=== PATIENT | male | born 1960 | race Caucasian/White ===

== ENCOUNTER 2023-02-22 10:14 | Emergency (ER) | payer OTHER ==
[~2023-02-22] VITALS: Ht 182.9 cm; Wt 90.7 kg
[~2023-02-22 10:14] MED LIST: ADULTS 50+ MUL1 EACH PO; BACLOFEN10 MG PO; BUPRENORPHINE HC8 MG SL; CELEBREX50 MG PO; CELECOXIB200 MG PO; GLUCOSAMINE CH1 EAC1 PO; LAMOTRIGINE100 MG PO; METHOCARBAMOL750 MG PO; METHYLPREDNISOLO4 M1 PO; MORPHINE SULFAT30 M1 PO; NORCO 10-325 T1 EACH PO; NORCO 5-325 TA1 EACH PO; PROZAC10 MG PO; SUBOXONE 8 MG-1 EAC1 SL; VITAMIN D5000 UNIT PO; ZOFRAN ODT8 MG PO
[2023-02-22] MEDS ORDERED: TIZANIDINE HCL2 MG PO (10:45)
[2023-02-22] MEDS ORDERED: DULOXETINE HCL20 MG PO (10:45)
[2023-02-22] MEDS ORDERED: IRBESARTAN150 MG PO (10:45)
[2023-02-22] MEDS ORDERED: PREDNISONE20 MG PO (11:14)
[2023-02-22] MEDS ORDERED: NEURONTIN400 MG PO (11:14)
[2023-02-22] MEDS ORDERED: HYDROCODON-ACE1 EA10 PO (11:14)
[2023-02-22 11:47] VITALS: BP 146/93
== END 2023-02-22 11:48 | disposition home or self-care (01) ==
LOC: ED 10:14
DX: M54.12 Radiculopathy, cervical region (principal); M48.02 Spinal stenosis, cervical region; Z79.899 Other long term (current) drug therapy
CPT/HCPCS: 96372; 99283; J1100

== ENCOUNTER 2023-08-18 20:19 | Emergency (ER) | payer OTHER ==
[~2023-08-18] VITALS: Ht 182.9 cm; Wt 90.9 kg
[~2023-08-18 20:19] MED LIST changes: +DICLOFENAC SODI75 MG PO; +DULOXETINE HCL20 MG PO; +HYDROCODON-ACE1 EA10 PO; +HYDROXYZINE PAM25 MG PO; +IRBESARTAN150 MG PO; +LASIX20 MG PO; +LIDODERM1 EACH TOP; +NEURONTIN400 MG PO; +PANTOPRAZOLE SO40 MG PO; +PREDNISONE20 MG PO; +TIZANIDINE HCL2 MG PO
--- OUTSIDE RECORDS SUMMARY | 2023-08-18 20:22 | XMS ---
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 PHONE: [phone] Susan has no Care Guidelines for this patient. EJoyce VISIT COUNT (12 MO.) [address] [place] [address] TOTAL 6 NOTE: Visits indicate total known visits. ED/UCC VISIT TRACKING (12 MO.) 08/18/2023 20:20 [facility] [place] TYPE: Emergency COMPLAINT: - LEG SWELLING 07/27/2023 03:20 [facility] [place] TYPE: Emergency COMPLAINT: - BACK PAIN DIAGNOSES: - Cervicalgia - Exposure to other specified factors, initial encounter - Other exterminator termite (current) drug therapy - Strain of muscle, fascia and tendon at neck level, initial encounter 06/01/2023 23:18 [facility] [place] TYPE: Emergency COMPLAINT: - NECK PAIN DIAGNOSES: - Cervicalgia - Other exterminator termite (current) drug therapy - Spinal stenosis, cervical region - Torticollis 03/30/2023 10:10 [facility] [place] TYPE: Emergency COMPLAINT: - NECK/BACK/FINGERS PAIN, AMS DIAGNOSES: - Altered mental status, unspecified - Hypokalemia - snf (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 of systemic steroids - Other correction (current) drug therapy - Other psychoactive substance abuse, uncomplicated 03/26/2023 13:16 [facility] [place] TYPE: Emergency COMPLAINT: - NECK PAIN DIAGNOSES: - Cervicalgia - Muscle spasm of back - Other exterminator termite (current) drug therapy - Other muscle spasm 02/22/2023 10:15 [facility] [place] TYPE: Emergency COMPLAINT: - NECK PAIN, LOWER BACK PAIN DIAGNOSES: - Low back pain, unspecified - Other exterminator termite (current) drug therapy - Radiculopathy, cervical region - Spinal stenosis, cervical region INPATIENT VISIT TRACKING (12 MO.) No inpatient visits to display in this time frame [id number]
[2023-08-18 21:06] LABS: BASOPHILS 0.3 % (0-2); EOSINOPHILS 5.3 % (0-6); HEMATOCRIT 31.9 % (35.0-50.0); HEMOGLOBIN 10.5 g/dL (12.0-18.0); LYMPHOCYTES 25.9 % (24-44); MCH 29.1 (27-36); MCV 88.3 fl (81-99); MONOCYTES 11.6 % (0-12); NEUTROPHILS 56.9 % (39-80); PLATELET COUNT 242 K/uL (140-440); RBC 3.61 M/ul (4.3-5.7); RDW 14.1 (10.5-15.0)
[2023-08-18 21:28] LABS: ALBUMIN 3.1 g/dL (3.4-5.0); ALBUMIN/GLOBULIN RATIO 0.76 (1.1-2.4); ANION GAP 10.7 (7-21); BILIRUBIN, TOTAL 0.3 ng/dL (0.2-1.0); CALCIUM 8.6 mg/dL (8.5-10.1); POTASSIUM 3.7 mmol/L (3.5-5.1); PROTEIN, TOTAL 7.2 g/dL (6.4-8.2)
[2023-08-18] MEDS ORDERED: CYCLOBENZAPRINE10 MG PO (22:18)
[2023-08-18] MEDS ORDERED: NEURONTIN300 MG PO (22:18)
[2023-08-18] MEDS ORDERED: CYCLOBENZAPRINE HCL 10 MG HOME.PACK PO ONE (22:30)
[2023-08-18 22:38] VITALS: BP 109/67
== END 2023-08-18 22:39 | disposition home or self-care (01) ==
LOC: ED 20:19
PROVIDERS: Family Medicine
DX: M54.12 Radiculopathy, cervical region (principal); R60.0 Localized edema; F11.10 Opioid abuse, uncomplicated; Z79.899 Other long term (current) drug therapy
CPT/HCPCS: 36415; 80053; 83880; 85025; 99283

== ENCOUNTER 2023-11-05 10:07 | Emergency (ER) | payer OTHER ==
[~2023-11-05] VITALS: Ht 182.9 cm; Wt 98.3 kg
[~2023-11-05 10:07] MED LIST changes: +CYCLOBENZAPRINE10 MG PO; +NEURONTIN300 MG PO
--- OUTSIDE RECORDS SUMMARY | 2023-11-05 10:08 | XMS ---
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 E.D. VISIT COUNT (12 MO.) 7 [facility] TOTAL 7 NOTE: Visits indicate total known visits. ED/UCC VISIT TRACKING (12 MO.) 11/05/2023 10:07 [facility] [place] TYPE: Emergency COMPLAINT: - NECK PAIN 08/18/2023 20:20 [facility] [place] TYPE: Emergency COMPLAINT: - LEG SWELLING DIAGNOSES: - Cervicalgia - Localized edema - Opioid abuse, uncomplicated - Other care home (current) drug therapy - Radiculopathy, cervical region 07/27/2023 03:20 [facility] [place] TYPE: Emergency COMPLAINT: - BACK PAIN DIAGNOSES: - Cervicalgia - Exposure to other specified factors, initial encounter - Other equipment operator intermodal yard (current) drug therapy - Strain of muscle, fascia and tendon at neck level, initial encounter 06/01/2023 23:18 [facility] [place] TYPE: Emergency COMPLAINT: - NECK PAIN DIAGNOSES: - Cervicalgia - Other care home (current) drug therapy - Spinal stenosis, cervical region - Torticollis 03/30/2023 10:10 [facility] [place] TYPE: Emergency COMPLAINT: - NECK/BACK/FINGERS PAIN, AMS DIAGNOSES: - Altered mental status, unspecified - Hypokalemia - intermediate accountant (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 of systemic steroids - Other care home (current) drug therapy - Other psychoactive substance abuse, uncomplicated 03/26/2023 13:16 [facility] [place] TYPE: Emergency COMPLAINT: - NECK PAIN DIAGNOSES: - Cervicalgia - Muscle spasm of back - Other equipment operator intermodal yard (current) drug therapy - Other muscle spasm 02/22/2023 10:15 [facility] [place] TYPE: Emergency COMPLAINT: - NECK PAIN, LOWER BACK PAIN DIAGNOSES: - Low back pain, unspecified - Other equipment operator intermodal yard (current) drug therapy - Radiculopathy, cervical region - Spinal stenosis, cervical region INPATIENT VISIT TRACKING (12 MO.) No inpatient visits to display in this time frame [email or web address]
[2023-11-05] MEDS ORDERED: IBUPROFEN 800 MG TAB PO ONE (10:45)
[2023-11-05 11:01] LABS: ALBUMIN 3.2 g/dL (3.4-5.0); ALBUMIN/GLOBULIN RATIO 0.74 (1.1-2.4); BILIRUBIN, TOTAL 0.3 ng/dL (0.2-1.0); BUN/CREATININE RATIO 27.47 (6.0-28.6); CALCIUM 8.8 mg/dL (8.5-10.1); CREATININE, SERUM 0.91 mg/dL (0.70-1.30); PROTEIN, TOTAL 7.5 g/dL (6.4-8.2)
[2023-11-05] MEDS ORDERED: NEURONTIN300 MG PO (11:38)
[2023-11-05] MEDS ORDERED: LASIX40 MG PO (11:38)
[2023-11-05 11:50] VITALS: BP 117/78
== END 2023-11-05 11:52 | disposition home or self-care (01) ==
LOC: ED 10:07
PROVIDERS: Emergency Medicine
DX: M54.2 Cervicalgia (principal); R60.0 Localized edema; Z79.899 Other long term (current) drug therapy
CPT/HCPCS: 36415; 80053; 99283; A9270

== ENCOUNTER 2024-04-11 11:48 | Emergency (ER) | payer OTHER ==
[~2024-04-11] VITALS: Ht 182.9 cm; Wt 96.2 kg
[~2024-04-11 11:48] MED LIST changes: +LASIX40 MG PO
[2024-04-11] MEDS ORDERED: LAMOTRIGINE200 MG PO (13:04)
[2024-04-11] MEDS ORDERED: BUPRENORPHIN-N1 EACH SL (13:04)
[2024-04-11] MEDS ORDERED: KETOROLAC TROMETHAMINE 15 MG/ML VIAL IM ONE (13:15)
[2024-04-11] MEDS ORDERED: NEURONTIN300 MG PO (14:57)
[2024-04-11] MEDS ORDERED: PREDNISONE50 MG PO (14:57)
[2024-04-11 15:14] VITALS: BP 123/73
== END 2024-04-11 15:16 | disposition home or self-care (01) ==
LOC: ED 11:48
DX: M54.12 Radiculopathy, cervical region (principal); Z79.899 Other long term (current) drug therapy
CPT/HCPCS: 72125; 96372; 99283-25; J1885

== ENCOUNTER 2024-05-02 02:36 | Emergency (ER) | payer OTHER ==
[~2024-05-02] VITALS: Ht 182.9 cm; Wt 89.8 kg
[~2024-05-02 02:36] MED LIST changes: +BUPRENORPHIN-N1 EACH SL; +LAMOTRIGINE200 MG PO; +PREDNISONE50 MG PO
--- OUTSIDE RECORDS SUMMARY | 2024-05-02 02:43 | XMS ---
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 - 2 Visits in 30 Days CARE PROVIDERS -, [facility] Dentist: Concrete Journeyman [facility] PHONE: [phone] -Leighann- Dentist: Concrete Journeyman [facility] PHONE: [phone] [facility] P[facility] Internal Medicine Current PHONE: Unknown Susan has no Care Guidelines for this patient. Kristy VISIT COUNT (12 MO.) 6 [facility] TOTAL 6 NOTE: Visits indicate total known visits. ED/UCC VISIT TRACKING (12 MO.) 05/02/2024 02:36 [facility] [place] TYPE: Emergency COMPLAINT: - WEAKNESS 04/11/2024 11:49 [facility] [place] TYPE: Emergency COMPLAINT: - NECK PAIN DIAGNOSES: - Cervicalgia - Other halfway (current) drug therapy - Radiculopathy, cervical region 11/05/2023 10:07 [facility] [place] TYPE: Emergency COMPLAINT: - NECK PAIN DIAGNOSES: - Cervicalgia - Localized edema - Other halfway (current) drug therapy 08/18/2023 20:20 [facility] [place] TYPE: Emergency COMPLAINT: - LEG SWELLING DIAGNOSES: - Cervicalgia - Localized edema - Opioid abuse, uncomplicated - Other halfway (current) drug therapy - Radiculopathy, cervical region 07/27/2023 03:20 [facility] [place] TYPE: Emergency COMPLAINT: - BACK PAIN DIAGNOSES: - Cervicalgia - Exposure to other specified factors, initial encounter - Other exterminator helper termite (current) drug therapy - Strain of muscle, fascia and tendon at neck level, initial encounter 06/01/2023 23:[address] [facility] [place] TYPE: Emergency COMPLAINT: - NECK PAIN DIAGNOSES: - Cervicalgia - Other halfway (current) drug therapy - Spinal stenosis, cervical region - Torticollis INPATIENT VISIT TRACKING (12 MO.) No inpatient visits to display in this time frame [id number]
[2024-05-02 03:11] LABS: BASOPHILS 0.1 % (0-2); HEMATOCRIT 32.1 % (35.0-50.0); LYMPHOCYTES 12.4 % (24-44); MCH 28.5 (27-36); MCHC 34.3 g/dl (30-36); MCV 82.9 fl (81-99); MONOCYTES 7.6 % (0-12); NEUTROPHILS 78.9 % (39-80); PLATELET COUNT 238 K/uL (140-440); RBC 3.87 M/ul (4.3-5.7)
[2024-05-02 03:14] LABS: INR 1.13 (0.80-1.30); PROTIME 14.4 Sec (11.2-14.2)
[2024-05-02 03:27] LABS: ALBUMIN 3.6 g/dL (3.4-5.0); ALBUMIN/GLOBULIN RATIO 0.78 (1.1-2.4); ANION GAP 14.2 (7-21); BILIRUBIN, TOTAL 0.6 ng/dL (0.2-1.0); BUN/CREATININE RATIO 17.91 (6.0-28.6); CALCIUM 8.9 mg/dL (8.5-10.1); CREATININE, SERUM 2.4 mg/dL (0.70-1.30); POTASSIUM 4.2 mmol/L (3.5-5.1); PROTEIN, TOTAL 8.2 g/dL (6.4-8.2)
[2024-05-02] MEDS ORDERED: SODIUM CHLORIDE 0.9% 2,000 ML IV SCH (05:15)
[2024-05-02 05:56] LABS: AMPHETAMINES, URINE POSITIVE (NEGATIVE); BARBITURATES, URINE NEGATIVE (NEGATIVE); BENZODIAZEPINE, URINE NEGATIVE (NEGATIVE); BUPRENORPHINE, URINE NEGATIVE (NEGATIVE); CANNABINOID, URINE NEGATIVE (NEGATIVE); COCAINE, URINE NEGATIVE (NEGATIVE); ECSTASY, URINE NEGATIVE (NEGATIVE); FENTANYL, URINE POSITIVE (NEGATIVE); METHADONE, URINE NEGATIVE (NEGATIVE); OPIATES, URINE NEGATIVE (NEGATIVE); OXYCODONE, URINE NEGATIVE (NEGATIVE); PHENCYCLIDINE, URINE NEGATIVE (NEGATIVE)
[2024-05-02 07:40] LABS: BUN/CREATININE RATIO 21.55 (6.0-28.6); CALCIUM 8.3 mg/dL (8.5-10.1); CREATININE, SERUM 1.67 mg/dL (0.70-1.30)
[2024-05-02 12:18] VITALS: BP 111/64
--- NOTE | 2024-05-04 17:06 | EKG ---
[facility] [address] [facility] [place] [address] Signed Sinus tachycardia Incomplete right bundle branch block Borderline ECG When compared with ECG of 30-MAR-2023 11:03, No significant change was found Confirmed by Elizabeth Alcala DO ([id number]) on 05/04/2024 5:06:37 PM Electronically Signed By: ELIZABETH ALCALA DO 05/04/24 1706 PATIENT NAME: ED BAE Electrocardiogram DATE OF : 56 PHYSICIAN: ELIZABETH ALCALA DO REPORT #: [id number] REPORT IS CONFIDENTIAL AND NOT TO BE RELEASED WITHOUT AUTHORIZATION
== END 2024-05-02 12:19 | disposition home or self-care (01) ==
LOC: ED 02:36
PROVIDERS: Emergency Medicine
DX: R53.1 Weakness (principal); M47.816 Spondylosis without myelopathy or radiculopathy, lumbar region; F11.10 Opioid abuse, uncomplicated; Z79.899 Other long term (current) drug therapy
CPT/HCPCS: 36415; 51798; 70450; 70496; 70498; 72148; 74176; 80048; 80053; 80307; 85025; 85610; 93005; 93010; 99284-25; G0480; J7030; Q9967

== ENCOUNTER 2024-05-03 11:30 | Emergency (ER) | payer OTHER ==
[2024-05-03 13:06] VITALS: BP 114/79
== END 2024-05-03 13:08 | disposition home or self-care (01) ==
LOC: ED 11:30
DX: R40.4 Transient alteration of awareness (principal); T40.415A Adverse effect of fentanyl or fentanyl analogs, initial encounter; Z98.1 Arthrodesis status; Z79.52 Long term (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 of systemic steroids; Z79.899 Other long term (current) drug therapy
CPT/HCPCS: 99284

== ENCOUNTER 2024-06-22 06:55 | Day surgery (SDC) | payer OTHER ==
[2024-06-13 13:23] VITALS: BP 136/83
[~2024-06-22] VITALS: Ht 182.9 cm; Wt 96.4 kg
[~2024-06-22 06:55] MED LIST changes: +AVAPRO150 MG PO; +HYDROCHLOROTH12.5 MG PO; +METHADONE HCL40 MG PO; +MIDAZOLAM HCL 5 MG/5 ML VIAL IV PRN; +fentaNYL citrate 100 MCG/2 ML VIAL IV PRN
[2024-06-22] MEDS ORDERED: IBLOOD GLUCOSE TEST STRIP 1 EA TEST VI PRN (07:00)
[2024-06-22] MEDS ORDERED: LACTATED RINGER'S 1,000 ML IV SCH (07:00)
[2024-06-22] MEDS ORDERED: LIDOCAINE HCL 1% 5 ML SDV INJ ONE (07:00)
[2024-06-22 07:12] VITALS: BP 132/81
--- NOTE | 2024-06-22 07:20 | NUR ---
PT NOTED TO HAVE CHEWING TOBACCO IN HIS MOUTH. PT STATED "I'LL SPIT THIS OUT". PT INFORMED THAT NPO AFTER MIDNIGHT INCLUDED TOBACCO. PT INFORMED THAT THIS COULD POTENTIALLY CAUSES HIS PROCEDURE TO BE CANCELLED. DR. BERMUDEZ NOTIFIED AND WITH COMMENT THAT ANESTHESIA CAN MAKE THE FINAL DECISION ON IF PT CAN PROCEED WITH PROCEDURE. SPOKE WITH LARRY MAWXELL AND HE CAN PROCEED WITH PROCEDURE, HOWEVER HE WILL BE DELAYED AT MINIMUM 2 HOURS AND WILL BE MOVED TO THE LAST SCOPE OF THE DAY FOR DR. BERMUDEZ. PT UPDATED. OR CHARGE NOTIFIED WELL DS CHARGE. THIS RN PROCEEDED TO RESUME CHECKING PT IN FOR PROCEDURE. PT ALSO WAS GIVEN TOOTHBRUSH AND CHLORAHEXADINE MOUTH WASH TO USE TO BRUSH TEETH AND RINSE MOUTH OUT AFTERWARDS TO ELIMATE IN RESIDUAL CHEWING TOBACCO IN HIS MOUTH. PT COMPLIED WITH REQUEST.
--- NOTE | 2024-06-22 07:41 | NUR ---
PT NOT AVAILABLE FOR VISIT. PROVIDED PRAYER.
[2024-06-22] MEDS ORDERED: propofoL 200 MG/20 ML VIAL ONE (10:30)
--- NOTE | 2024-06-22 10:40 | NUR ---
INTO PTS ROOM TO NOTIFY HIM THAT HE WILL BE GOING BACK QUITE SOON. PT NOTED TO BE SLEEPING. PT WOKEN TO NAME BEING CALLED OUT. PT VOICED NEED TO USE RESTROOM. ALSO NOTED PTSIV FLUIDS CLOSE TO EMPTY. CLAMP FLUIDS OFF, DISCONNECTED PT SO THAT HE MAY USE RESTROOM AND HUNG 2ND BAG OF LR. ONCE PT RETURNED FROM RESTROOM, IV FLUIDS RECONNECTED AT TKO PER ORDERS.
[2024-06-22] MEDS ORDERED: ePHEDrine sulfate 50 MG/ML AMP ONE (11:20)
[2024-06-22 11:47] VITALS: BP 107/79
--- NOTE | 2024-06-22 12:24 | NUR ---
06/22/24 1224 Curtis Quispe 1118: PT ARRIVED TO PACU VIA STRETCHER. PT HAS ORAL AIRWAY IN PLACE AND ON 10L NC. PT NON AROUSABLE AT THIS TIME. 1131: ORAL AIRWAY REMOVED AT THIS TIME. PT DROWSY BUT EASILY AROUSABLE. PT HAD AMOUNT OF INCOTINENT STOOL. CLEANSED PATIENT AT THIS TIME. ATTENDS PLACED AT THIS TIME. 1140: PT SITTING AT EDGE OF BED WITH NO COMPLAINTS OF DIZZINESS OR NAUSEA AT THIS TIME. 1155: PT DISCHARGED TO HOME WT ALL BELONGINGS. DISCHARGE INSTRUCTIONS GIVEN ON MEDICATION, ACTIVITY, DIET, FOLLOW-UP, AND WHEN TO CONTACT THE MD.
--- NOTE | 2024-06-22 14:32 | OR ---
[facility] [address] [place], [place] [address] Signed DATE OF OPERATION: 06/22/2024 SURGEON: Juan Jose Bermudez MD PREOPERATIVE DIAGNOSES: 1. Cologuard positive stool in April 2023. 2. Diverticulosis. 3. Hyperplastic colonic polyps in 2013 at age 52. 4. Father with history of colonic polyps. 5. Anemia with hemoglobin 10.9 and mean cell volume 82. POSTOPERATIVE DIAGNOSES: 1. Diverticulosis. 2. Poor bowel prep. PROCEDURE: Sigmoidoscopy without biopsy (35 cm). ESTIMATED BLOOD LOSS: None. INDICATIONS: Ed is a 63-year-old gentleman, asked to see me for both his followup colonoscopy and an umbilical hernia. The umbilical hernias got to the point it needs to be repaired. However, he had a positive Cologuard test in April 2023. We know he had hyperplastic colonic polyps back in 2013 at the age of 52. He has diverticulosis. In addition, his father is known to have colonic polyps. We found out on his preoperative blood work that he is anemic with a hemoglobin of 10.9, but his mean cell volume is normal at 82. He has had a lot of difficulty with his neck and his back with chronic pain. At one point, he was using fentanyl and methamphetamines. He had been on Suboxone now. He is on methadone. That was new to us today. We had given him a pamphlet in the office on colonoscopy. We had reviewed the nature of the test. There is risk including, but not limited to gas bloating, crampy abdominal pain, bleeding, perforation requiring surgery, and missed diagnosis. We also reviewed the written instructions for bowel prep line by line. It is the same bowel prep he took back in 2013. Also, he is in need of monitored anesthesia care given his history as described above. On his preoperative blood work. We discovered he is a little anemic. He does not seem to have any lower GI complaints. He had expressed understanding and wished to proceed. He understands an adult person has to take him home afterwards. He had expressed understanding and wished to proceed. Electronically Signed By: JUAN JOSE BERMUDEZ MD 06/22/24 1432 PATIENT NAME: ED BAE JR OPERATIVE REPORT DATE OF : 56 REPORT #: [id number] PHYSICIAN: JUAN JOSE BERMUDEZ MD PCP: VALENTIN HENSLEY MD REPORT IS CONFIDENTIAL AND NOT TO BE RELEASED WITHOUT AUTHORIZATION [facility] [address] [place], [place] [address] Signed DESCRIPTION OF PROCEDURE: Ed was taken into our endoscopy suite and placed in the left lateral decubitus position. He was chewing snuff this morning so we had him wait a couple of hours before we took him back. He was given monitored anesthesia care propofol infusion per our nurse stator winder. Unfortunately, he had dark liquid particulate stool matter coming from the anus. A digital rectal exam was performed. He had no external hemorrhoids. He had good sphincter tone. His prostate was enlarged and indurated. The right is a little larger than the left. There were no masses. We advanced the adult colonoscope carefully up to about 35 cm. We went by large amounts of liquid particulate stool matter. We simply could not suction it through the scope. We finally met a wall of liquid stool at 35 cm. We simply had to stop for safety reasons. The scope was then slowly withdrawn and the gas was suctioned out. Ed tolerated the procedure quite well. RECOMMENDATIONS: Ed needs to reschedule his colonoscopy with a double bowel prep. That would be a full gallon of polyethylene glycol and eight Dulcolax tablets or he could use one bottle of magnesium citrate in place of the Dulcolax tablets. He will always need monitored anesthesia care. Juan Jose Bermudez MD ALB/MODL /[id number] cc: MD Valentin Lake MD Copies: JUAN JOSE BERMUDEZ MD, RUSSEL J MD ~ Electronically Signed By: JUAN JOSE BERMUDEZ MD 06/22/24 1432 PATIENT NAME: ED BAE JR OPERATIVE REPORT DATE OF : 56 REPORT #: [id number] PHYSICIAN: JUAN JOSE BERMUDEZ MD PCP: VALENTIN HENSLEY MD REPORT IS CONFIDENTIAL AND NOT TO BE RELEASED WITHOUT AUTHORIZATION
== END 2024-06-22 11:55 | disposition home or self-care (01) ==
LOC: DS 06:55
PROVIDERS: ATTEND Colon & Rectal Surgery
PROC: 0DJD8ZZ Inspection of Lower Intestinal Tract, Via Natural or Artificial Opening Endoscopic (ICD-10-PCS; principal; 2024-06-22 08:15)
DX: K57.30 Diverticulosis of large intestine without perforation or abscess without bleeding (principal); K42.9 Umbilical hernia without obstruction or gangrene; D64.9 Anemia, unspecified; I10 Essential (primary) hypertension; F31.9 Bipolar disorder, unspecified; F11.20 Opioid dependence, uncomplicated; F17.220 Nicotine dependence, chewing tobacco, uncomplicated; F15.10 Other stimulant abuse, uncomplicated; Z86.0102 Personal history of hyperplastic colon polyps; Z79.899 Other long term (current) drug therapy; Z88.8 Allergy status to other drugs, medicaments and biological substances; Z90.49 Acquired absence of other specified parts of digestive tract; Z83.719 Family history of colon polyps, unspecified
CPT/HCPCS: J2704; J7121

== ENCOUNTER 2024-06-25 18:31 | Emergency (ER) | payer OTHER ==
[~2024-06-25] VITALS: Ht 182.9 cm; Wt 90.0 kg
[~2024-06-25 18:31] MED LIST changes: -MIDAZOLAM HCL 5 MG/5 ML VIAL IV PRN; -fentaNYL citrate 100 MCG/2 ML VIAL IV PRN
[2024-06-25 22:16] LABS: BASOPHILS 0.3 % (0-2); EOSINOPHILS 2.9 % (0-6); HEMATOCRIT 28.5 % (35.0-50.0); HEMOGLOBIN 9.7 g/dL (12.0-18.0); LYMPHOCYTES 15.3 % (24-44); MCH 27.7 (27-36); MCHC 34.2 g/dl (30-36); MCV 81.2 fl (81-99); MONOCYTES 15.6 % (0-12); NEUTROPHILS 65.9 % (39-80); PLATELET COUNT 223 K/uL (140-440); RBC 3.51 M/ul (4.3-5.7); RDW 15.9 (10.5-15.0)
[2024-06-25 22:26] LABS: BILIRUBIN, URINE NEGATIVE (negative); BLOOD/HGB, URINE LARGE (Negative); KETONE, URINE NEGATIVE (Negative); LEUK ESTERASE, URINE NEGATIVE (negative); NITRITE, URINE NEGATIVE (negative); PH, URINE 5.5 (5-7)
[2024-06-25 22:33] LABS: CRYSTALS, URINE NONE SEEN (0-1+); EPITHELIAL CELLS, URINE SQUAMOUS 1+ /lpf (0-1+); RED BLOOD CELLS, URINE >50 /hpf (0-5)
[2024-06-25 22:34] LABS: BACTERIA, URINE RARE /hpf (negative); CASTS, URINE HYALINE 1+ \\lpf
[2024-06-25 22:35] LABS: COLLECTION TYPE, URINE CLEAN CATCH; REFLEX CULTURE, URINE No (No)
[2024-06-25 22:35] LABS: LACTIC ACID, BLOOD 0.7 mmol/L (0.4-2.0)
[2024-06-25 22:38] LABS: PARTIAL THROMBOPLASTIN TIME 35.9 Sec (22.9-41.3)
[2024-06-25 22:41] LABS: ALBUMIN/GLOBULIN RATIO 0.63 (1.1-2.4); ANION GAP 7.9 (7-21); BILIRUBIN, TOTAL 0.5 mg/dL (0.2-1.0); CALCIUM 8.6 mg/dL (8.5-10.1); CREATININE, SERUM 1.32 mg/dL (0.70-1.30); POTASSIUM 3.9 mmol/L (3.5-5.1); PROTEIN, TOTAL 7.8 g/dL (6.4-8.2)
[2024-06-25 22:42] LABS: INR 1.24 (0.80-1.30); PROTIME 14.9 Sec (11.2-14.2)
[2024-06-25 22:44] LABS: AMPHETAMINES, URINE NEGATIVE (NEGATIVE); BARBITURATES, URINE NEGATIVE (NEGATIVE); BENZODIAZEPINE, URINE NEGATIVE (NEGATIVE); BUPRENORPHINE, URINE NEGATIVE (NEGATIVE); CANNABINOID, URINE NEGATIVE (NEGATIVE); COCAINE, URINE NEGATIVE (NEGATIVE); ECSTASY, URINE NEGATIVE (NEGATIVE); FENTANYL, URINE POSITIVE (NEGATIVE); METHADONE, URINE POSITIVE (NEGATIVE); OPIATES, URINE NEGATIVE (NEGATIVE); OXYCODONE, URINE NEGATIVE (NEGATIVE); PHENCYCLIDINE, URINE NEGATIVE (NEGATIVE)
[2024-06-25] MEDS ORDERED: DOXYCYCLINE HYCLATE 100 MG CAP PO ONE (23:00)
[2024-06-25] MEDS ORDERED: COLCHICINE 0.6 MG TAB PO ONE (23:30)
[2024-06-25] MEDS ORDERED: COLCHICINE0.6 M1 PO (23:49)
[2024-06-25] MEDS ORDERED: DOXYCYCLINE HY100 MG PO (23:49)
[2024-06-25 23:58] VITALS: BP 115/73
== END 2024-06-26 00:03 | disposition home or self-care (01) ==
LOC: ED 18:31
PROVIDERS: Internal Medicine
DX: M10.9 Gout, unspecified (principal); L03.115 Cellulitis of right lower limb
CPT/HCPCS: 36415; 80053; 80307; 81001; 83605; 83735; 84550; 85025; 85379; 85610; 85730; 86140; 87040; 93971; 99284-25

== ENCOUNTER 2024-08-10 12:55 | Emergency (ER) | payer OTHER ==
[~2024-08-10] VITALS: Ht 182.9 cm; Wt 93.4 kg
[~2024-08-10 12:55] MED LIST changes: +COLCHICINE0.6 M1 PO; +DOXYCYCLINE HY100 MG PO
[2024-08-10 14:39] LABS: BASOPHILS 0.1 % (0.2-1.2); EOSINOPHILS 2.2 % (0.8-7.0); HEMATOCRIT 31.9 % (40.1-51.0); HEMOGLOBIN 10.3 g/dL (13.7-17.5); LYMPHOCYTES 13.6 % (21.8-53.1); MCH 27.2 PG (25.7-32.2); MCHC 32.3 g/dL (32.3-36.5); MCV 84.4 fL (79.0-92.2); MONOCYTES 14.9 % (5.3-12.2); NEUTROPHILS 68.9 % (34.0-67.9); PLATELET COUNT 207 K/uL (163-337); RBC 3.78 M/uL (4.63-6.08)
[2024-08-10 15:01] LABS: ALBUMIN 3.2 g/dL (3.4-5.0); ALBUMIN/GLOBULIN RATIO 0.7 (1.1-2.4); ANION GAP 11.7 (7-21); BILIRUBIN, TOTAL 0.6 mg/dL (0.2-1.0); BUN/CREATININE RATIO 22.01 (6.0-28.6); CALCIUM 8.6 mg/dL (8.5-10.1); CREATININE, SERUM 1.09 mg/dL (0.70-1.30); POTASSIUM 3.7 mmol/L (3.5-5.1); PROTEIN, TOTAL 7.8 g/dL (6.4-8.2)
[2024-08-10] MEDS ORDERED: CEPHALEXIN500 M1 PO (15:19)
[2024-08-10 15:28] VITALS: BP 131/76
[2024-08-10 15:41] LABS: ERYTHROCYTE SEDIMENTATION RATE 58
== END 2024-08-10 15:28 | disposition home or self-care (01) ==
LOC: ED 12:55
PROVIDERS: Emergency Medicine
DX: L03.116 Cellulitis of left lower limb (principal); Z79.899 Other long term (current) drug therapy; Z88.8 Allergy status to other drugs, medicaments and biological substances
CPT/HCPCS: 36415; 73590; 80053; 84550; 85025; 85651; 86140; 93971; 99284-25

== ENCOUNTER 2024-08-25 09:48 | Emergency (ER) | payer OTHER ==
[~2024-08-25] VITALS: Ht 182.9 cm; Wt 89.2 kg
[~2024-08-25 09:48] MED LIST changes: +CEPHALEXIN500 M1 PO
--- OUTSIDE RECORDS SUMMARY | 2024-08-25 09:55 | XMS ---
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 Kristy VISIT COUNT (12 MO.) 7 LUCILA [facility]ustos TOTAL 7 NOTE: Visits indicate total known visits. ED/UCC VISIT TRACKING (12 MO.) 08/25/2024 09:49 [facility] [place] TYPE: Emergency COMPLAINT: - LEG PAIN 08/10/2024 12:55 [facility] [place] TYPE: Emergency COMPLAINT: - RT LEG PAIN DIAGNOSES: - Allergy status to other drugs, medicaments and biological substances - Cellulitis of left lower limb - Other exterminator termite (current) drug therapy 06/25/2024 18:32 [facility] [place] TYPE: Emergency COMPLAINT: - POSS INFECTION DIAGNOSES: - Cellulitis of right lower limb - Gout, unspecified 05/03/2024 11:30 [facility] [place] TYPE: Emergency COMPLAINT: - ALTERED LOC DIAGNOSES: - Adverse effect of fentanyl or fentanyl analogs, initial encounter - Arthrodesis status - 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 supervisor (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 of systemic steroids - Other exterminator termite (current) drug therapy - Transient alteration of awareness 05/02/2024 02:36 [facility] [place] TYPE: Emergency COMPLAINT: - WEAKNESS DIAGNOSES: - Opioid abuse, uncomplicated - Other exterminator termite (current) drug therapy - Spondylosis without myelopathy or radiculopathy, lumbar region - Weakness 04/11/2024 11:49 [facility] [place] TYPE: Emergency COMPLAINT: - NECK PAIN DIAGNOSES: - Cervicalgia - Other group home (current) drug therapy - Radiculopathy, cervical region 11/05/2023 10:07 [facility] [place] TYPE: Emergency COMPLAINT: - NECK PAIN DIAGNOSES: - Cervicalgia - Localized edema - Other group home (current) drug therapy INPATIENT VISIT TRACKING (12 MO.) No inpatient visits to display in this time frame [id number]
[2024-08-25] MEDS ORDERED: TRIMETHOPRIM/SULFAMETHOXAZOLE 1 EA TAB PO ONE (10:45)
[2024-08-25] MEDS ORDERED: BACTRIM DS TAB1 EACH PO (11:37)
[2024-08-25 11:42] VITALS: BP 116/76
== END 2024-08-25 11:42 | disposition home or self-care (01) ==
LOC: ED 09:48
DX: L03.115 Cellulitis of right lower limb (principal); Z88.8 Allergy status to other drugs, medicaments and biological substances; Z79.2 Long term (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 of antibiotics
CPT/HCPCS: 99283; A9270

== ENCOUNTER 2024-09-11 08:45 | Day surgery (SDC) | payer OTHER ==
[2024-09-04 09:42] VITALS: BP 100/63
[~2024-09-11] VITALS: Ht 182.9 cm; Wt 90.0 kg
[~2024-09-11 08:45] MED LIST changes: +BACTRIM DS TAB1 EACH PO; +IBLOOD GLUCOSE TEST STRIP 1 EA TEST VI PRN; +LACTATED RINGER'S 1,000 ML IV SCH; +LIDOCAINE HCL 1% 5 ML SDV INJ ONE
[2024-09-11 09:18] VITALS: BP 133/87
[2024-09-11] MEDS ORDERED: KETAMINE in NS 50 MG/5 ML SYR ONE (10:09)
[2024-09-11] MEDS ORDERED: propofoL 200 MG/20 ML VIAL ONE (10:09)
[2024-09-11] MEDS ORDERED: fentaNYL citrate 100 MCG/2 ML VIAL ONE (10:09)
[2024-09-11] MEDS ORDERED: LIDOCAINE HCL 2% 5 ML SDV ONE (10:09)
[2024-09-11] MEDS ORDERED: KETOROLAC TROMETHAMINE 30 MG/ML VIAL ONE (10:37)
[2024-09-11] MEDS ORDERED: DEXAMETHASONE SOD PHOS 4 MG/ML VIAL ONE ×2 (10:37)
[2024-09-11] MEDS ORDERED: ondansetron HCL 4 MG/2 ML VIAL ONE (10:37)
[2024-09-11] MEDS ORDERED: ePHEDrine sulfate 50 MG/ML AMP ONE (10:40)
[2024-09-11] MEDS ORDERED: GLYCOPYRROLATE 1 MG/5 ML MDV ONE (10:57)
[2024-09-11] MEDS ORDERED: CEFAZOLIN SODIUM 2 GM/20 ML SYR IV ONE (11:00)
--- NOTE | 2024-09-11 11:19 | NUR ---
09/11/24 1119 Shanna Paz 1108-PATIENT ARRIVED TO PACU ON 6L MASK NONAROUSABLE ORAL AIRWAY IN PLACE. EDILMA UTILIZATION SUPERVISOR RAISED PATIENTS HEAD AND APNEIC WITH AIWAY INPLACE. UTILIZATION SUPERVISOR HOLDING AIRWAY. 1110-PATIENT MAINTAINING AIRWAY OCCASIONAL APNEA WITH ORAL AIRWAY IN PLACE 6L MASK 1115-PATIENTS HOB ELEVATED 6L MASK RR 8. REACTIVE TO VERBAL STIMULI OPENING EYES.
[2024-09-11] MEDS ORDERED: fentaNYL citrate 50 MCG/ML SDV IV PRN (11:45)
[2024-09-11] MEDS ORDERED: NALOXONE HCL 0.4 MG SYR IV PRN (11:45)
[2024-09-11 11:50] VITALS: BP 157/91
[2024-09-11] MEDS ORDERED: HYDROCODONE/ACETA 7.5/325 TAB PO PRN (12:45)
[2024-09-11 12:53] VITALS: BP 137/82
--- NOTE | 2024-09-11 13:11 | NUR ---
SASHA 1150-PT BACK TO ROOM FROM PACU ON RA. RECEIVED REPORT FROM MANISH ROBERTO. PT IS AWAKE. RESP EVEN AND UNLABORED. PT HAS ABDOMINAL BINDER AND ICE PACK IN PLACE. PT DRINKING WATER AND EATING PUDDING AND CRACKERS. NO OTHER NEEDS AT THIS TIME. CALL LIGHT WITHIN REACH.
--- NOTE | 2024-09-11 13:12 | NUR ---
LE 1251-PT STATES PAIN IS A 5-6/10. PAIN MEDICATION GIVEN PER EMAR.
--- NOTE | 2024-09-11 13:13 | NUR ---
LE 1300-PT IS SITTING UP IN BED. RESP EVEN AND UNLABORED. RATES PAIN 7/10. PT EATING CRACKERS AND PUDDING. ABDOMINAL BINDER AND ICE PACK IN PLACE. NO OTHER NEEDS AT THIS TIME. CALL LIGHT WITHIN REACH.
--- NOTE | 2024-09-11 14:27 | NUR ---
LE 1340-PT STATES PAIN IS A 5/10 AND THIS IS TOLERABLE FOR HIM. PT GETTING DRESSED. CALL LIGHT WITHIN REACH. LE 1345-PT AMBULATES TO RESTROOM. PT ABLE TO VOID. LE 1348-PT BACK TO ROOM. WILL CALL FOR FOLLOW UP APPT.
--- NOTE | 2024-09-11 14:28 | NUR ---
LE 1400-WENT OVER DISCHARGE INSTRUCTIONS WITH PT. WENT OVER POSTOP MEDICATIONS. ALL QUESTIONS ANSWERED. LE 1410-PT AMBULATES TO WHEELCHAIR. RIDE PROVIDED TO FRONT OF HOSPITAL WHERE RIDE WAS WAITING WITH CAR.
[2024-09-11] MEDS ORDERED: SEVOFLURANE 250 ML BTL INH ONE (15:37)
--- NOTE | 2024-09-12 11:06 | OR ---
[facility] [address] [place], [place] [address] Signed DATE OF OPERATION: 09/11/2024 SURGEON: Tsering Shannon DO PREOPERATIVE DIAGNOSIS: Incarcerated umbilical hernia. POSTOPERATIVE DIAGNOSIS: Incarcerated umbilical hernia. PROCEDURE PERFORMED: Repair of incarcerated umbilical hernia. ANESTHESIA: General. ESTIMATED BLOOD LOSS: Minimal. DRAINS: None. COMPLICATIONS: None. DESCRIPTION OF PROCEDURE: The patient was brought to the operating room, placed in supine position. After induction of general endotracheal anesthesia, the abdomen was then sterilely shaved, prepped, and draped in usual fashion. Utilizing a curvilinear incision, skin was incised with a scalpel. Dissection was continued down through the layers of subcutaneous tissue. Bleeding points were controlled with electrocautery. The umbilicus and the base were identified. The umbilicus itself was then raised off the anterior fascia exposing the umbilical defect and the incarcerated contents. The hernia sac was then entered sharply, and the incarcerated contents were mobilized and excised and passed off the field. The fascial margins were then freshened with a Bovie cautery, and after all fascial margins had been freshened, decision to repair the hernia was then made. Umbilical hernia defect was then closed with interrupted [id number]-yb-nqblu of 0 Ethibond. This was done from [place]. Satisfactory closure was then noted. The umbilicus was then tacked back down to the anterior fascia with interrupted 2-0 Vicryl in a dzuxdx-di-tixzm fashion to recreate the umbilicus itself. The lateral Electronically Signed By: TSERING SHANNON DO 09/12/24 1106 PATIENT NAME: ED BAE JR OPERATIVE REPORT DATE OF : 56 REPORT #: [id number] PHYSICIAN: TSERING SHANNON DO PCP: VALENTIN HENSLEY MD REPORT IS CONFIDENTIAL AND NOT TO BE RELEASED WITHOUT AUTHORIZATION [facility] [address] [place], [place] [address] Signed defects were closed with interrupted 2-0 Vicryl as well. Subcutaneous tissue was then closed with 3-0 Vicryl in a subcuticular fashion. The skin was closed with 4-0 Monocryl in a subcuticular fashion . Dermabond dressing was applied. was then applied. Sterile dressing was applied. The patient tolerated the procedure well and went to recovery room in satisfactory condition. DO ROLANDO Hodge/MODL /[id number] Copies: ~ Electronically Signed By: TSERING SHANNON DO 09/12/24 1106 PATIENT NAME: ED BAE JR OPERATIVE REPORT DATE OF : 56 REPORT #: [id number] PHYSICIAN: TSERING SHANNON DO PCP: VALENTIN HENSLEY MD REPORT IS CONFIDENTIAL AND NOT TO BE RELEASED WITHOUT AUTHORIZATION
== END 2024-09-11 14:10 | disposition home or self-care (01) ==
LOC: DS 08:45
PROVIDERS: ATTEND Surgery
PROC: 0WQF0ZZ Repair Abdominal Wall, Open Approach (ICD-10-PCS; principal; 2024-09-11 09:55)
DX: K42.0 Umbilical hernia with obstruction, without gangrene (principal); F17.220 Nicotine dependence, chewing tobacco, uncomplicated; Z88.8 Allergy status to other drugs, medicaments and biological substances; Z79.899 Other long term (current) drug therapy; Z90.49 Acquired absence of other specified parts of digestive tract
CPT/HCPCS: 00750; A9270; J0690; J1100; J1885; J2003; J2405; J2704; J3010; J3490